=== PATIENT | male | born 1940 | race Caucasian/White ===

== ENCOUNTER 2020-06-28 11:59 | Emergency (ER) | payer MEDICARE, BC, OTHER ==
[2020-06-28] MEDS ORDERED: Iopamidol 755 Mg/ML 100 ML Bottle IVPUSH ONE (13:02)
[2020-06-28] MEDS ORDERED: Levofloxacin/Dextrose 5%-Water 500 MG in Premix Bag 1 BAG IV ONE (13:50)
[2020-06-28] MEDS ORDERED: Sodium Chloride 0.9% 1,000 ML IV SCH (14:00)
[2020-06-28] MEDS ORDERED: fentaNYL 100 MCG/2 ML SDV IVPUSH ONE (14:32)
--- NOTE | 2020-06-28 15:48 | EDM.PDOC ---
ED HPI GENERAL MEDICAL PROBLEM - General Chief Complaint: Abdominal Pain Stated Complaint: ABD Pain Time Seen by Provider: 06/28/20 12:05 Source of Information: Reports: Patient History Limitations: Reports: No Limitations - History of Present Illness INITIAL COMMENTS - FREE TEXT/NARRATIVE: Patient presents to ER today with complaints of lower quadrant abdominal pain. Has had pain for the last 3 days, getting worse. Has been in quarantine due to dying recently, positive for COVID. He states he has been tested x2 prior to this, both negative. Denies any fever. No sore throat, cough, shortness of breath. Denies nausea or vomiting. Had a BM 2 days ago, was "a small one". No urinary complaints. Admits has not been eating or drinking well the last 24 hours. Onset: Gradual Duration: Day(s): Location: Reports: Abdomen Quality: Reports: Sharp Severity: Moderate Improves with: Reports: None Associated Symptoms: Reports: Loss of Appetite. 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 RLQ Pain Score (Numeric/FACES): 5 - Related Data Allergies Allergy/AdvReac Type Severity Reaction Status Date / Time No Known Allergies Allergy Verified 06/28/20 12:00 Home Meds: Home Meds Metoprolol Tartrate 100 mg PO DAILY 06/28/20 [History] Simvastatin 20 mg PO DAILY 06/28/20 [History] Warfarin [Coumadin] 2.5 mg PO DAILY 06/28/20 [History] lisinopriL [Lisinopril] 20 mg PO DAILY 06/28/20 [History] Past Medical History Cardiovascular History: Reports: Afib, High Cholesterol, Hypertension - Past Surgical History GI Surgical History: Reports: Appendectomy Social & Family History - Family History Family Medical History: Noncontributory - Tobacco Use Smoking Status *Q: Never Smoker - Caffeine Use Caffeine Use: Reports: None - Recreational Drug Use Recreational Drug Use: No ED ROS GENERAL - Review of Systems Review Of Systems: See Below Constitutional: Reports: Malaise, Weakness, Fatigue. Denies: Fever, Chills HEENT: Reports: No Symptoms Respiratory: Denies: Shortness of Breath, Cough Cardiovascular: Denies: Chest Pain, Edema, Lightheadedness Endocrine: Reports: Fatigue GI/Abdominal: Reports: Abdominal Pain, Constipation. Denies: Nausea, Vomiting : Reports: No Symptoms Musculoskeletal: Reports: No Symptoms Skin: Reports: No Symptoms Neurological: Reports: No Symptoms ED EXAM, GI/ABD - Physical Exam Exam: See Below Exam Limited By: No Limitations General Appearance: Alert, WD/WN, No Apparent Distress Ears: Normal External Exam, Normal TMs Nose: Normal Inspection, Normal Mucosa, No Blood Throat/Mouth: Normal Inspection, Normal Oropharynx Head: Normocephalic Neck: Normal Inspection, Supple, Non-Tender Respiratory/Chest: No Respiratory Distress, Lungs Clear, Normal Breath Sounds Cardiovascular: Irregularly Irregular GI/Abdominal Exam: Normal Bowel Sounds, Soft, Tender (tender to lower quadrants bilaterally, more so on the right) Extremities: Normal Inspection, No Pedal Edema Neurological: Alert, Oriented Skin Exam: Warm, Dry Course - Vital Signs Last Recorded V/S: Last Vital Signs Temp 98.3 F 06/28/20 17:41 Pulse 72 06/28/20 17:41 Resp 18 06/28/20 17:41 BP 133/74 06/28/20 17:41 Pulse Ox 97 06/28/20 17:41 - Orders/Labs/Meds Labs: Laboratory Tests 06/28/20 06/28/20 06/28/20 Range/Units 12:04 12:15 12:15 WBC 19.4 H (5.0-10.0) 10^3/uL RBC 4.69 (4.50-6.00) 10^6/uL Hgb 13.9 L (14.0-18.0) g/dL Hct 42.5 (40.0-54.0) % MCV 90.6 (82.0-94.0) fL MCH 29.6 (27.0-32.0) pg MCHC 32.7 L (33.0-38.0) g/dL RDW Coeff of Tavia 14.7 (11.0-15.0) % Plt Count 144 L (150-400) 10^3/uL Add Manual Diff Yes Neutrophils % (Manual) 85 (35-85) % Band Neutrophils % 7 H (0-5) % Lymphocytes % (Manual) 3 L (21-55) % Monocytes % (Manual) 5 (2-12) % Sodium 143 (136-145) mEq/L Potassium 4.4 (3.5-5.0) mEq/L Chloride 104 (98-106) mEq/L Carbon Dioxide 30 (21-32) mmol/L BUN 26 H (7-18) mg/dL Creatinine 1.5 H (0.7-1.3) mg/dL Est Cr Clr Drug Dosing 40.56 mL/min Estimated GFR (MDRD) 45 L (>=60) mL/min Glucose 165 H D (75-99) mg/dL Calcium 9.1 (8.4-10.1) mg/dL Total Bilirubin 2.3 H (0.0-1.0) mg/dL AST 22 (15-37) U/L ALT 20 (12-78) U/L Alkaline Phosphatase 67 (46-116) U/L C-Reactive Protein 3.6 H (0.2-0.8) mg/dL Total Protein 6.7 (6.4-8.2) g/dL Albumin 3.4 (3.4-5.0) g/dL Amylase 98 (25-115) U/L Lipase 79 (73-393) U/L Urine Color (YELLOW) Urine Appearance (CLEAR) Urine pH (4.5-8.0) Ur Specific [place] (1.003-1.020) Urine Protein (NEGATIVE) mg/dL Urine Glucose (UA) (NEGATIVE) mg/dL Urine Ketones (NEGATIVE) mg/dL Urine Occult Blood (NEGATIVE) Urine Nitrite (NEGATIVE) Urine Bilirubin (NEGATIVE) Urine Urobilinogen (0.2-1.0) EU/dL Ur Leukocyte Esterase (NEGATIVE) Urine RBC (0-5) /HPF Urine WBC (0-5) /HPF Ur Epithelial Cells (NOT SEEN) /HPF SARS CoV-2 RNA Rapid ETHAN Negative (NEGATIVE) 06/28/20 Range/Units 14:00 WBC (5.0-10.0) 10^3/uL RBC (4.50-6.00) 10^6/uL Hgb (14.0-18.0) g/dL Hct (40.0-54.0) % MCV (82.0-94.0) fL MCH (27.0-32.0) pg MCHC (33.0-38.0) g/dL RDW Coeff of Tavia (11.0-15.0) % Plt Count (150-400) 10^3/uL Add Manual Diff Neutrophils % (Manual) (35-85) % Band Neutrophils % (0-5) % Lymphocytes % (Manual) (21-55) % Monocytes % (Manual) (2-12) % Sodium (136-145) mEq/L Potassium (3.5-5.0) mEq/L Chloride (98-106) mEq/L Carbon Dioxide (21-32) mmol/L BUN (7-18) mg/dL Creatinine (0.7-1.3) mg/dL Est Cr Clr Drug Dosing mL/min Estimated GFR (MDRD) (>=60) mL/min Glucose (75-99) mg/dL Calcium (8.4-10.1) mg/dL Total Bilirubin (0.0-1.0) mg/dL AST (15-37) U/L ALT (12-78) U/L Alkaline Phosphatase (46-116) U/L C-Reactive Protein (0.2-0.8) mg/dL Total Protein (6.4-8.2) g/dL Albumin (3.4-5.0) g/dL Amylase (25-115) U/L Lipase (73-393) U/L Urine Color Red (YELLOW) Urine Appearance Cloudy (CLEAR) Urine pH 5.5 (4.5-8.0) Ur Specific [place] 1.025 H (1.003-1.020) Urine Protein 100 H (NEGATIVE) mg/dL Urine Glucose (UA) Negative (NEGATIVE) mg/dL Urine Ketones Negative (NEGATIVE) mg/dL Urine Occult Blood Large H (NEGATIVE) Urine Nitrite Positive H (NEGATIVE) Urine Bilirubin Small H (NEGATIVE) Urine Urobilinogen 0.2 (0.2-1.0) EU/dL Ur Leukocyte Esterase Negative (NEGATIVE) Urine RBC >100 H (0-5) /HPF Urine WBC Not seen (0-5) /HPF Ur Epithelial Cells Moderate H (NOT SEEN) /HPF SARS CoV-2 RNA Rapid ETHAN (NEGATIVE) Meds: Medications Discontinued Medications Generic Name Dose Route Start Last Admin Trade Name Freq PRN Reason Stop Dose Admin Fentanyl 25 mcg 06/28/20 14:32 06/28/20 15:04 Sublimaze IVPUSH 06/28/20 14:33 25 mcg ONETIME ONE Administration Sodium Chloride 1,000 mls @ 250 mls/hr 06/28/20 14:00 06/28/20 17:42 Normal Saline IV 0 mls/hr ASDIRECTED ROSALINA Infusion Levofloxacin/Dextrose 500 mg/ 100 mls @ 100 mls/hr 06/28/20 13:50 06/28/20 16:53 Premix IV 06/28/20 14:49 Infused ONETIME ONE Infusion Iopamidol 100 ml 06/28/20 13:02 06/28/20 13:13 Isovue-370 (76%) IVPUSH 06/28/20 13:03 100 ml ONETIME ONE Administration - Re-Assessments/Exams Free Text/Narrative Re-Assessment/Exam: 06/28 Patient's labs show elevated WBC, CRP. Unable to void. Fluids started. Questioned about pain level, states "just need something to help sleep at night". CT scan ordered. CT scan shows hydronephrosis, stone to the right ureter. Also concerns with prostatitis. Levaquin order. 06-28 151- Patient given Fentanyl. Admits to relief of discomfort. Offered admission, patient declined. Will start on Levaquin, flomax and norco. Will strain urine. Return on Wednesday for INR Departure - Departure Time of Disposition: 15:44 Disposition: Home, Self-Care 01 Condition: Fair Clinical Impression: Ureteral colic, Prostatitis - Discharge Information *PRESCRIPTION DRUG MONITORING PROGRAM REVIEWED*: No *COPY OF PRESCRIPTION DRUG MONITORING REPORT IN PATIENT LOW: No Referrals: Tona Victoria PA-C [Primary Care Provider] - Forms: ED Department Discharge Additional Instructions: 1. Rest 2. Push fluids 3. Hydrocodone every6 hours as needed for pain 4. Levaquin 250 mg daily 5. Flomax 0.4 mg daily 6. Strain urine 7. INR on Wednesday due to antibiotic use 8. See primary care provider next week for follow up Sepsis Event Note (ED) - Evaluation Sepsis Screening Result: No Definite Risk
== END 2020-06-28 17:46 | disposition home or self-care (01) ==
LOC: CC.ED 11:59
DX: N13.2 Hydronephrosis with renal and ureteral calculous obstruction (principal); N41.9 Inflammatory disease of prostate, unspecified; I10 Essential (primary) hypertension; R53.1 Weakness; E78.00 Pure hypercholesterolemia, unspecified; I48.91 Unspecified atrial fibrillation; Z79.01 Long term (current) use of anticoagulants; Z79.899 Other long term (current) drug therapy; Z20.828 Contact with and (suspected) exposure to other viral communicable diseases
CPT/HCPCS: 36415; 74177; 80053; 81001; 82150; 83690; 85025; 86140; 87086; 96365; 96375; 99284; J1956; J3010; J7030; Q9967; U0002

== ENCOUNTER 2020-11-20 21:10 | Inpatient (IN) | payer MEDICARE, BC ==
[2020-11-20] MEDS ORDERED: Iopamidol 755 Mg/ML 100 ML Bottle IVPUSH ONE (21:35)
[2020-11-20] MEDS ORDERED: Acetaminophen 325 MG Tab PO ONE (23:04)
--- NOTE | 2020-11-20 23:11 | EDM.PDOC ---
ED HPI GENERAL MEDICAL PROBLEM - General Chief Complaint: General Stated Complaint: weakness Time Seen by Provider: 11/20/20 21:20 Source of Information: Reports: Patient, Family History Limitations: Reports: No Limitations - History of Present Illness INITIAL COMMENTS - FREE TEXT/NARRATIVE: Art is an 80 yo male who presents to the ED via private vehicle, accompanied by his sons, with weakness. States he was seen this morning at [facility] and had laboratory work done today. Was unable to leave a urine sample. Admits a few weeks ago he did receive his first Covid vaccine and admits ever since then he hasn't felt well. States he hasn't had any appetite and if he does eat he is nauseated. Admits to some mild intermittent abdominal discomfort as well. Denies any diarrhea. No upper respiratory symptoms. Has been unable to drink much for fluids. Both sons state they were to bring him up tomorrow morning for a CT scan. Has had some weight loss the last few weeks as well. - Related Data Allergies Allergy/AdvReac Type Severity Reaction Status Date / Time No Known Allergies Allergy Verified 11/20/20 21:15 Home Meds: Home Meds Metoprolol Tartrate 100 mg PO BID 06/28/20 [History] Simvastatin 20 mg PO DAILY 06/28/20 [History] Warfarin [Coumadin] 2.5 mg PO DAILY 06/28/20 [History] lisinopriL [Lisinopril] 20 mg PO DAILY 06/28/20 [History] Hydrocodone/Acetaminophen [Hydrocodone-Acetamin 5-325 mg] 1 each PO Q6H PRN 11/20/20 [History] Past Medical History Cardiovascular History: Reports: Afib, High Cholesterol, Hypertension - Past Surgical History Cardiovascular Surgical History: Reports: None GI Surgical History: Reports: Appendectomy Social & Family History - Family History Family Medical History: No Pertinent Family History - Tobacco Use Tobacco Use Status *Q: Never Tobacco User - Caffeine Use Caffeine Use: Reports: None ED ROS GENERAL - Review of Systems Review Of Systems: See Below Constitutional: Reports: Fever, Malaise, Weakness, Fatigue, Decreased Appetite, Weight Loss. Denies: Chills HEENT: Reports: No Symptoms Respiratory: Denies: Shortness of Breath, Wheezing, Cough Cardiovascular: Denies: Chest Pain, Edema, Lightheadedness, Palpitations, Syncope GI/Abdominal: Reports: Nausea. Denies: Bloody Stool, Constipation, Diarrhea, Hematochezia, Melena, Vomiting : Reports: No Symptoms. Denies: Dysuria, Flank Pain, Frequency, Hematuria, Urgency Musculoskeletal: Reports: Muscle Stiffness Skin: Reports: No Symptoms Neurological: Reports: No Symptoms. Denies: Confusion, Headache Psychiatric: Reports: Depression ED EXAM, GENERAL - Physical Exam Exam: See Below Exam Limited By: No Limitations General Appearance: Alert, Lethargic, Thin Ears: Normal External Exam, Normal Canal, Normal TMs Nose: Normal Inspection, Normal Mucosa, No Blood, Clear Rhinorrhea Throat/Mouth: Normal Inspection, Normal Voice, No Airway Compromise, Other (dry oral mucosa). No: Normal Lips (dry lips) Head: Atraumatic, Normocephalic Neck: Normal Inspection, Supple Respiratory/Chest: No Respiratory Distress, Decreased Breath Sounds (right lower lobe), Rhonchi (bases) Cardiovascular: No Murmur, Tachycardia GI/Abdominal: Normal Bowel Sounds, No Organomegaly, No Distention, Tender (mild epigastric tenderness) Back Exam: No: CVA Tenderness (L), CVA Tenderness (R) Extremities: Pedal Edema (trace pitting bilateral) Neurological: Alert, Oriented Skin Exam: Dry, Intact, No Rash, Increased Warmth, Mottled Course - Vital Signs Last Recorded V/S: Last Vital Signs Temp 100.9 F H 11/20/20 22:07 Pulse 92 11/20/20 22:07 Resp 15 11/20/20 22:07 BP 131/67 11/20/20 22:07 Pulse Ox 98 11/20/20 22:07 - Orders/Labs/Meds Orders: Active Orders 24 hr Category Date Time Status CULTURE BLOOD [BC] Stat Lab 11/20/20 21:15 Received CULTURE BLOOD [BC] Stat Lab 11/20/20 21:20 Received Labs: Laboratory Tests 11/20/20 11/20/20 11/20/20 Range/Units 21:16 21:16 21:16 WBC 5.7 (5.0-10.0) 10^3/uL RBC 5.42 (4.50-6.00) 10^6/uL Hgb 16.0 (14.0-18.0) g/dL Hct 47.4 (40.0-54.0) % MCV 87.5 (82.0-94.0) fL MCH 29.5 (27.0-32.0) pg MCHC 33.8 (33.0-38.0) g/dL RDW Coeff of Tavia 14.4 (11.0-15.0) % Plt Count 132 L (150-400) 10^3/uL Add Manual Diff Yes Neutrophils % (Manual) 71 (35-85) % Lymphocytes % (Manual) 10 L (21-55) % Monocytes % (Manual) 18 H (2-12) % Basophils % (Manual) 1 (0-3) % Absolute Neutrophils 4.05 (1.80-7.00) 10^3/uL Lymphocytes # (Manual) 0.57 L (1.00-4.80) 10^3/uL Monocytes # (Manual) 1.03 H (0.00-0.80) 10^3/uL Basophils # (Manual) 0.06 10^3/uL PT (9.7-12.3) SEC INR (0.92-1.18) Sodium 137 (136-145) mEq/L Potassium 4.3 (3.5-5.0) mEq/L Chloride 101 (98-106) mEq/L Carbon Dioxide 27 (21-32) mmol/L BUN 29 H (7-18) mg/dL Creatinine 1.4 H (0.7-1.3) mg/dL Est Cr Clr Drug Dosing 39.15 mL/min Estimated GFR (MDRD) 49 L (>=60) mL/min Glucose 122 H (75-99) mg/dL Lactic Acid 2.2 H (0.4-2.0) mmol/L Calcium 9.3 (8.4-10.1) mg/dL Total Bilirubin 1.2 H (0.0-1.0) mg/dL AST 114 H (15-37) U/L ALT 84 H (12-78) U/L Alkaline Phosphatase 81 (46-116) U/L C-Reactive Protein 5.5 H (0.2-0.8) mg/dL Total Protein 7.6 (6.4-8.2) g/dL Albumin 3.0 L (3.4-5.0) g/dL Amylase 103 (25-115) U/L Lipase 178 (73-393) U/L Urine Color (YELLOW) Urine Appearance (CLEAR) Urine pH (4.5-8.0) Ur Specific [place] (1.003-1.020) Urine Protein (NEGATIVE) mg/dL Urine Glucose (UA) (NEGATIVE) mg/dL Urine Ketones (NEGATIVE) mg/dL Urine Occult Blood (NEGATIVE) Urine Nitrite (NEGATIVE) Urine Bilirubin (NEGATIVE) Urine Urobilinogen (0.2-1.0) EU/dL Ur Leukocyte Esterase (NEGATIVE) U Hyaline Cast (Auto) (NOT SEEN) /LPF Urine RBC (0-5) /HPF Urine WBC (0-5) /HPF Urine Mucus (NOT SEEN) /HPF SARS-CoV-2 RNA (ETHAN) (NEGATIVE) 11/20/20 11/20/20 11/20/20 Range/Units 21:18 21:25 22:00 WBC (5.0-10.0) 10^3/uL RBC (4.50-6.00) 10^6/uL Hgb (14.0-18.0) g/dL Hct (40.0-54.0) % MCV (82.0-94.0) fL MCH (27.0-32.0) pg MCHC (33.0-38.0) g/dL RDW Coeff of Tavia (11.0-15.0) % Plt Count (150-400) 10^3/uL Add Manual Diff Neutrophils % (Manual) (35-85) % Lymphocytes % (Manual) (21-55) % Monocytes % (Manual) (2-12) % Basophils % (Manual) (0-3) % Absolute Neutrophils (1.80-7.00) 10^3/uL Lymphocytes # (Manual) (1.00-4.80) 10^3/uL Monocytes # (Manual) (0.00-0.80) 10^3/uL Basophils # (Manual) 10^3/uL PT 15.4 H (9.7-12.3) SEC INR 1.53 H (0.92-1.18) Sodium (136-145) mEq/L Potassium (3.5-5.0) mEq/L Chloride (98-106) mEq/L Carbon Dioxide (21-32) mmol/L BUN (7-18) mg/dL Creatinine (0.7-1.3) mg/dL Est Cr Clr Drug Dosing mL/min Estimated GFR (MDRD) (>=60) mL/min Glucose (75-99) mg/dL Lactic Acid (0.4-2.0) mmol/L Calcium (8.4-10.1) mg/dL Total Bilirubin (0.0-1.0) mg/dL AST (15-37) U/L ALT (12-78) U/L Alkaline Phosphatase (46-116) U/L C-Reactive Protein (0.2-0.8) mg/dL Total Protein (6.4-8.2) g/dL Albumin (3.4-5.0) g/dL Amylase (25-115) U/L Lipase (73-393) U/L Urine Color [place] (YELLOW) Urine Appearance Slightly cloudy (CLEAR) Urine pH 5.0 (4.5-8.0) Ur Specific [place] >= 1.030 H (1.003-1.020) Urine Protein >=300 H (NEGATIVE) mg/dL Urine Glucose (UA) Negative (NEGATIVE) mg/dL Urine Ketones Negative (NEGATIVE) mg/dL Urine Occult Blood Moderate H (NEGATIVE) Urine Nitrite Negative (NEGATIVE) Urine Bilirubin Negative (NEGATIVE) Urine Urobilinogen 0.2 (0.2-1.0) EU/dL Ur Leukocyte Esterase Negative (NEGATIVE) U Hyaline Cast (Auto) Few H (NOT SEEN) /LPF Urine RBC 5-10 H (0-5) /HPF Urine WBC Not seen (0-5) /HPF Urine Mucus Few H (NOT SEEN) /HPF SARS-CoV-2 RNA (ETHAN) Positive (NEGATIVE) Meds: Medications Discontinued Medications Generic Name Dose Route Start Last Admin Trade Name Freq PRN Reason Stop Dose Admin Iopamidol 100 ml 11/20/20 21:35 11/20/20 21:49 Isovue-370 (76%) IVPUSH 11/20/20 21:36 100 ml ONETIME ONE Administration Departure - Departure Time of Disposition: 22:45 Disposition: Admitted As Inpatient 66 Clinical Impression: COVID-19, Nephrolithiasis, Dehydration Right lower lobe pneumonia Qualifiers: Pneumonia type: due to unspecified organism Qualified Code(s): J18.9 - Pneumonia, unspecified organism - Discharge Information *PRESCRIPTION DRUG MONITORING PROGRAM REVIEWED*: Not Applicable *COPY OF PRESCRIPTION DRUG MONITORING REPORT IN PATIENT LOW: Not Applicable Sepsis Event Note (ED) - Evaluation Sepsis Screening Result: Possible Sepsis Risk - Focused Exam Vital Signs: Vital Signs Temp Pulse Resp BP Pulse Ox 11/20/20 22:07 100.9 F H 92 15 131/67 98 11/20/20 21:11 101.6 F H 110 H 16 151/78 H 93 L - Problem List & Annotations (1) COVID-19 SNOMED Code(s): 066758492 Code(s): U07.1 - COVID-19 Status: Acute Current Visit: Yes (2) Dehydration SNOMED Code(s): 88549534 Code(s): E86.0 - DEHYDRATION Status: Acute Current Visit: Yes (3) Nephrolithiasis SNOMED Code(s): 99515904 Code(s): N20.0 - CALCULUS OF KIDNEY Status: Acute Current Visit: Yes (4) Right lower lobe pneumonia SNOMED Code(s): 503101588 Code(s): J18.9 - PNEUMONIA, UNSPECIFIED ORGANISM Status: Acute Current Visit: Yes Qualifiers: Pneumonia type: due to unspecified organism Qualified Code(s): J18.9 - Pneumonia, unspecified organism - Problem List Review Problem List Initiated/Reviewed/Updated: Yes - My Orders Last 24 Hours: My Active Orders 11/20/20 21:15 CULTURE BLOOD [BC] Stat 11/20/20 21:20 CULTURE BLOOD [BC] Stat - Assessment/Plan Admission H&P: Please use this note as an admission H&P Last 24 Hours: My Active Orders 11/20/20 21:15 CULTURE BLOOD [BC] Stat 11/20/20 21:20 CULTURE BLOOD [BC] Stat Plan: Art appears to be significantly dehydrated. Will initiate IV fluids. Covid was positive tonight and will admit to [facility] room under acute care. CT of the chest/abdomen/pelvis did show right lower lobe pneumonia and also a 3mm kidney stone at the UV junction. Moderate amount of blood noted in urine, no sign of UTI. Lactic acid was 2.7 earlier today and now 2.2. WBC is stable and normal at 5700. CRP slightly elevated. Electrolytes stable. Discussed into detail Art condition with both sons and Art himself. Art declines any life saving measures if it would come to that. He requests to stay at the local facility at this time. Will place in Covla unit and start IV fluids under acute care. Patient in agreement.
[2020-11-20] MEDS ORDERED: Sodium Chloride 0.9% 1,000 ML IV SCH ×2 (23:15→23:59)
[2020-11-20] MEDS ORDERED: Ibuprofen 200 MG Tab PO PRN (23:59)
[2020-11-20] MEDS ORDERED: Ondansetron 4 MG/2 ML SDV IV PRN (23:59)
[2020-11-21] MEDS ORDERED: Acetaminophen/HYDROcodone 325-5 MG Tab PO PRN (00:04)
[2020-11-21] MEDS: cefTRIAXone 1 GM Vial IVPUSH SCH ×2 (00:35→23:39)
[2020-11-21] MEDS: Enoxaparin 40 MG/0.4 ML Syringe SUBCUT SCH (00:35)
[2020-11-21] MEDS: Azithromycin 500 MG in Sodium Chloride 0.9% 250 ML IV SCH ×2 (00:35→23:39)
[2020-11-21 07:41] LABS: CHLORIDE,CL 105 mEq/L (98-106); SODIUM,NA 139 mEq/L (136-145)
[2020-11-21] MEDS: Lisinopril 20 MG Tab PO SCH (07:56)
[2020-11-21] MEDS: Metoprolol Tartrate 50 MG Tab PO SCH ×2 (07:56→19:54)
[2020-11-21] MEDS: Simvastatin 20 MG Tab PO SCH (07:56)
[2020-11-21] MEDS ORDERED: Sodium Chloride 0.9% 1,000 ML IV SCH (10:30)
[2020-11-21] MEDS: Warfarin 2.5 MG Tab PO SCH (12:02)
[2020-11-21] MEDS: Acetaminophen 325 MG Tab PO PRN ×2 (13:45→23:49)
--- NOTE | 2020-11-21 18:12 | PCM.PN ---
- General Info Date of Service: 11/21/20 Subjective Update: Art is an 80 yo male who presented to the ED yesterday via private vehicle, accompanied by his sons, with weakness. He was seen yesterday morning at [facility] and had laboratory work done. Was unable to leave a urine sample. Admits a few weeks ago he did receive his first Covid vaccine and admits ever since then he hasn't felt well. Stated on admit he hasn't had an appetite and if he would eat he got nauseated. On admission he did complain of some mild intermittent abdominal discomfort as well. 11/21/2020 Patient was diagnosed with COVID, RLL pneumonia, nephrolithiasis yesterday. Today he states he is feeling great. Admits to feeling night and day difference from yesterday. He has been up to the bathroom without difficulty. Denies any abdominal discomfort. No shortness of breath or cough. Overall is feeling well. Functional Status: Reports: Pain Controlled, Ambulating, Urinating - Review of Systems General: Reports: Fatigue. Denies: Fever, Chills HEENT: Reports: No Symptoms Pulmonary: Reports: No Symptoms Cardiovascular: Reports: No Symptoms Gastrointestinal: Reports: No Symptoms Genitourinary: Reports: No Symptoms Musculoskeletal: Reports: No Symptoms Skin: Reports: No Symptoms Neurological: Reports: No Symptoms Psychiatric: Reports: No Symptoms - Patient Data Vitals - Most Recent: Last Vital Signs Temp 98.6 F 11/21/20 12:00 Pulse 63 11/21/20 12:00 Resp 18 11/21/20 12:00 BP 112/56 L 11/21/20 12:00 Pulse Ox 94 L 11/21/20 12:00 Weight - Most Recent: 138 lb 11.2 oz Lab Results Last 24 Hours: Laboratory Results - last 24 hr 11/20/20 11/20/20 11/20/20 Range/Units 21:16 21:16 21:16 WBC 5.7 (5.0-10.0) 10^3/uL RBC 5.42 (4.50-6.00) 10^6/uL Hgb 16.0 (14.0-18.0) g/dL Hct 47.4 (40.0-54.0) % MCV 87.5 (82.0-94.0) fL MCH 29.5 (27.0-32.0) pg MCHC 33.8 (33.0-38.0) g/dL RDW Coeff of Tavia 14.4 (11.0-15.0) % Plt Count 132 L (150-400) 10^3/uL Neut % (Auto) (35-85) % Lymph % (Auto) (10-55) % [place] % (Auto) (0-16) % Eos % (Auto) (0-5) % Baso % (Auto) (0-3) % Neut # (Auto) (1.80-7.00) 10^3/uL Lymph # (Auto) (1.00-4.80) 10^3/uL [place] # (Auto) (0.00-0.80) 10^3/uL Eos # (Auto) (0.00-0.45) 10^3/uL Baso # (Auto) 10^3/uL Add Manual Diff Yes Neutrophils % (Manual) 71 (35-85) % Lymphocytes % (Manual) 10 L (21-55) % Monocytes % (Manual) 18 H (2-12) % Basophils % (Manual) 1 (0-3) % Absolute Neutrophils 4.05 (1.80-7.00) 10^3/uL Lymphocytes # (Manual) 0.57 L (1.00-4.80) 10^3/uL Monocytes # (Manual) 1.03 H (0.00-0.80) 10^3/uL Basophils # (Manual) 0.06 10^3/uL PT (9.7-12.3) SEC INR (0.92-1.18) Sodium 137 (136-145) mEq/L Potassium 4.3 (3.5-5.0) mEq/L Chloride 101 (98-106) mEq/L Carbon Dioxide 27 (21-32) mmol/L BUN 29 H (7-18) mg/dL Creatinine 1.4 H (0.7-1.3) mg/dL Est Cr Clr Drug Dosing 39.15 mL/min Estimated GFR (MDRD) 49 L (>=60) mL/min Glucose 122 H (75-99) mg/dL Lactic Acid 2.2 H (0.4-2.0) mmol/L Calcium 9.3 (8.4-10.1) mg/dL Total Bilirubin 1.2 H (0.0-1.0) mg/dL AST 114 H (15-37) U/L ALT 84 H (12-78) U/L Alkaline Phosphatase 81 (46-116) U/L C-Reactive Protein 5.5 H (0.2-0.8) mg/dL Total Protein 7.6 (6.4-8.2) g/dL Albumin 3.0 L (3.4-5.0) g/dL Amylase 103 (25-115) U/L Lipase 178 (73-393) U/L Urine Color (YELLOW) Urine Appearance (CLEAR) Urine pH (4.5-8.0) Ur Specific [place] (1.003-1.020) Urine Protein (NEGATIVE) mg/dL Urine Glucose (UA) (NEGATIVE) mg/dL Urine Ketones (NEGATIVE) mg/dL Urine Occult Blood (NEGATIVE) Urine Nitrite (NEGATIVE) Urine Bilirubin (NEGATIVE) Urine Urobilinogen (0.2-1.0) EU/dL Ur Leukocyte Esterase (NEGATIVE) U Hyaline Cast (Auto) (NOT SEEN) /LPF Urine RBC (0-5) /HPF Urine WBC (0-5) /HPF Urine Mucus (NOT SEEN) /HPF SARS-CoV-2 RNA (ETHAN) (NEGATIVE) 11/20/20 11/20/20 11/20/20 Range/Units 21:18 21:25 22:00 WBC (5.0-10.0) 10^3/uL RBC (4.50-6.00) 10^6/uL Hgb (14.0-18.0) g/dL Hct (40.0-54.0) % MCV (82.0-94.0) fL MCH (27.0-32.0) pg MCHC (33.0-38.0) g/dL RDW Coeff of [place]avia (11.0-15.0) % Plt Count (150-400) 10^3/uL Neut % (Auto) (35-85) % Lymph % (Auto) (10-55) % [place] % (Auto) (0-16) % Eos % (Auto) (0-5) % Baso % (Auto) (0-3) % Neut # (Auto) (1.80-7.00) 10^3/uL Lymph # (Auto) (1.00-4.80) 10^3/uL [place] # (Auto) (0.00-0.80) 10^3/uL Eos # (Auto) (0.00-0.45) 10^3/uL Baso # (Auto) 10^3/uL Add Manual Diff Neutrophils % (Manual) (35-85) % Lymphocytes % (Manual) (21-55) % Monocytes % (Manual) (2-12) % Basophils % (Manual) (0-3) % Absolute Neutrophils (1.80-7.00) 10^3/uL Lymphocytes # (Manual) (1.00-4.80) 10^3/uL Monocytes # (Manual) (0.00-0.80) 10^3/uL Basophils # (Manual) 10^3/uL PT 15.4 H (9.7-12.3) SEC INR 1.53 H (0.92-1.18) Sodium (136-145) mEq/L Potassium (3.5-5.0) mEq/L Chloride (98-106) mEq/L Carbon Dioxide (21-32) mmol/L BUN (7-18) mg/dL Creatinine (0.7-1.3) mg/dL Est Cr Clr Drug Dosing mL/min Estimated GFR (MDRD) (>=60) mL/min Glucose (75-99) mg/dL Lactic Acid (0.4-2.0) mmol/L Calcium (8.4-10.1) mg/dL Total Bilirubin (0.0-1.0) mg/dL AST (15-37) U/L ALT (12-78) U/L Alkaline Phosphatase (46-116) U/L C-Reactive Protein (0.2-0.8) mg/dL Total Protein (6.4-8.2) g/dL Albumin (3.4-5.0) g/dL Amylase (25-115) U/L Lipase (73-393) U/L Urine Color [place] (YELLOW) Urine Appearance Slightly cloudy (CLEAR) Urine pH 5.0 (4.5-8.0) Ur Specific [place] >= 1.030 H (1.003-1.020) Urine Protein >=300 H (NEGATIVE) mg/dL Urine Glucose (UA) Negative (NEGATIVE) mg/dL Urine Ketones Negative (NEGATIVE) mg/dL Urine Occult Blood Moderate H (NEGATIVE) Urine Nitrite Negative (NEGATIVE) Urine Bilirubin Negative (NEGATIVE) Urine Urobilinogen 0.2 (0.2-1.0) EU/dL Ur Leukocyte Esterase Negative (NEGATIVE) U Hyaline Cast (Auto) Few H (NOT SEEN) /LPF Urine RBC 5-10 H (0-5) /HPF Urine WBC Not seen (0-5) /HPF Urine Mucus Few H (NOT SEEN) /HPF SARS-CoV-2 RNA (ETHAN) Positive (NEGATIVE) 11/21/20 11/21/20 11/21/20 Range/Units 07:00 07:00 07:00 WBC 4.8 L (5.0-10.0) 10^3/uL RBC 4.62 (4.50-6.00) 10^6/uL Hgb 13.7 L (14.0-18.0) g/dL Hct 41.0 (40.0-54.0) % MCV 88.7 (82.0-94.0) fL MCH 29.7 (27.0-32.0) pg MCHC 33.4 (33.0-38.0) g/dL RDW Coeff of Tavia 14.2 (11.0-15.0) % Plt Count 101 L (150-400) 10^3/uL Neut % (Auto) 68.7 (35-85) % Lymph % (Auto) 10.2 (10-55) % [place] % (Auto) 20.9 H (0-16) % Eos % (Auto) 0 (0-5) % Baso % (Auto) 0.2 (0-3) % Neut # (Auto) 3.29 (1.80-7.00) 10^3/uL Lymph # (Auto) 0.49 L (1.00-4.80) 10^3/uL [place] # (Auto) 1.00 H (0.00-0.80) 10^3/uL Eos # (Auto) 0.00 (0.00-0.45) 10^3/uL Baso # (Auto) 0.01 10^3/uL Add Manual Diff Neutrophils % (Manual) (35-85) % Lymphocytes % (Manual) (21-55) % Monocytes % (Manual) (2-12) % Basophils % (Manual) (0-3) % Absolute Neutrophils (1.80-7.00) 10^3/uL Lymphocytes # (Manual) (1.00-4.80) 10^3/uL Monocytes # (Manual) (0.00-0.80) 10^3/uL Basophils # (Manual) 10^3/uL PT (9.7-12.3) SEC INR (0.92-1.18) Sodium 139 (136-145) mEq/L Potassium 4.1 (3.5-5.0) mEq/L Chloride 105 (98-106) mEq/L Carbon Dioxide 27 (21-32) mmol/L BUN 27 H (7-18) mg/dL Creatinine 1.1 (0.7-1.3) mg/dL Est Cr Clr Drug Dosing 47.66 mL/min Estimated GFR (MDRD) > 60 (>=60) mL/min Glucose 101 H (75-99) mg/dL Lactic Acid 1.2 (0.4-2.0) mmol/L Calcium 8.4 (8.4-10.1) mg/dL Total Bilirubin 0.8 (0.0-1.0) mg/dL AST 80 H (15-37) U/L ALT 67 (12-78) U/L Alkaline Phosphatase 61 (46-116) U/L C-Reactive Protein 4.7 H (0.2-0.8) mg/dL Total Protein 6.1 L (6.4-8.2) g/dL Albumin 2.4 L (3.4-5.0) g/dL Amylase (25-115) U/L Lipase (73-393) U/L Urine Color (YELLOW) Urine Appearance (CLEAR) Urine pH (4.5-8.0) Ur Specific [place] (1.003-1.020) Urine Protein (NEGATIVE) mg/dL Urine Glucose (UA) (NEGATIVE) mg/dL Urine Ketones (NEGATIVE) mg/dL Urine Occult Blood (NEGATIVE) Urine Nitrite (NEGATIVE) Urine Bilirubin (NEGATIVE) Urine Urobilinogen (0.2-1.0) EU/dL Ur Leukocyte Esterase (NEGATIVE) U Hyaline Cast (Auto) (NOT SEEN) /LPF Urine RBC (0-5) /HPF Urine WBC (0-5) /HPF Urine Mucus (NOT SEEN) /HPF SARS-CoV-2 RNA (ETHAN) (NEGATIVE) Med Orders - Current: Current Medications Acetaminophen (Tylenol) 650 mg PO Q4H PRN PRN Reason: Pain (Mild 1-3)/fever Last Admin: 11/21/20 13:45 Dose: 650 mg Documented by: Hydrocodone Bitart/Acetaminophen ([place] 325-5 Mg) 1 tab PO Q6H PRN PRN Reason: Pain Ceftriaxone Sodium (Rocephin) 1 gm IVPUSH Q24H [facility] Last Admin: 11/21/20 00:35 Dose: 1 gm Documented by: Enoxaparin Sodium (Lovenox) 40 mg SUBCUT Q24H [facility] Last Admin: 11/21/20 00:35 Dose: 40 mg Documented by: Azithromycin 500 mg/ Sodium (Chloride) 250 mls @ 250 mls/hr IV Q24H [facility] Last Admin: 11/21/20 00:35 Dose: 250 mls/hr Documented by: Sodium Chloride (Normal Saline) 1,000 mls @ 75 mls/hr IV ASDIRECTED [facility] Ibuprofen (Motrin) 400 mg PO Q6H PRN PRN Reason: Pain (mild 1-3) Lisinopril (Prinivil) 20 mg PO DAILY [facility] Last Admin: 11/21/20 07:56 Dose: 20 mg Documented by: Metoprolol Tartrate (Lopressor) 100 mg PO BID [facility] Last Admin: 11/21/20 07:56 Dose: 100 mg Documented by: Ondansetron HCl (Zofran) 4 mg IV Q4H PRN PRN Reason: Nausea/Vomiting Simvastatin (Zocor) 20 mg PO DAILY [facility] Last Admin: 11/21/20 07:56 Dose: 20 mg Documented by: Warfarin Sodium (Coumadin) 2.5 mg PO DAILY@1200 [facility] Last Admin: 11/21/20 12:02 Dose: 2.5 mg Documented by: Discontinued Medications Acetaminophen (Tylenol) 650 mg PO NOW ONE Stop: 11/20/20 23:05 Last Admin: 11/20/20 23:12 Dose: 650 mg Documented by: Sodium Chloride (Normal Saline) 1,000 mls @ 125 mls/hr IV ASDIRECTED [facility] Last Admin: 11/20/20 23:13 Dose: 125 mls/hr Documented by: Sodium Chloride (Normal Saline) 1,000 mls @ 125 mls/hr IV ASDIRECTED [facility] Iopamidol (Isovue-370 (76%)) 100 ml IVPUSH ONETIME ONE Stop: 11/20/20 21:36 Last Admin: 11/20/20 21:49 Dose: 100 ml Documented by: - Exam General: Alert, Oriented, Cooperative, No Acute Distress Lungs: Normal Respiratory Effort, Decreased Breath Sounds (right lower lobe) Cardiovascular: No Murmurs, Irregular Rhythm GI/Abdominal Exam: Normal Bowel Sounds, Soft, No Distention Extremities: Normal Inspection, Pedal Edema (trace) Skin: Warm, Dry, Intact Psy/Mental Status: Alert, Normal Affect, Normal Mood Sepsis Event Note - Evaluation Sepsis Screening Result: No Definite Risk - Focused Exam Vital Signs: Vital Signs Temp Pulse Pulse Resp BP BP Pulse Ox 11/21/20 12:00 98.6 F 63 18 112/56 L 94 L 11/21/20 08:00 98.1 F 68 18 126/63 97 11/21/20 07:56 63 126/63 - Problem List & Annotations (1) COVID-19 SNOMED Code(s): 165696829 Code(s): U07.1 - COVID-19 Status: Acute Current Visit: Yes (2) Dehydration SNOMED Code(s): 19529633 Code(s): E86.0 - DEHYDRATION Status: Acute Current Visit: Yes (3) Nephrolithiasis SNOMED Code(s): 72645089 Code(s): N20.0 - CALCULUS OF KIDNEY Status: Acute Current Visit: Yes (4) Right lower lobe pneumonia SNOMED Code(s): 242662077 Code(s): J18.9 - PNEUMONIA, UNSPECIFIED ORGANISM Status: Acute Current Visit: Yes Qualifiers: Pneumonia type: due to unspecified organism Qualified Code(s): J18.9 - Pneumonia, unspecified organism - Problem List Review Problem List Initiated/Reviewed/Updated: Yes - My Orders Last 24 Hours: My Active Orders 11/20/20 21:15 CULTURE BLOOD [BC] Stat 11/20/20 21:20 CULTURE BLOOD [BC] Stat 11/20/20 22:57 Resuscitation Status Routine 11/20/20 23:59 Acetaminophen [TylenoL] 650 mg PO Q4H PRN Azithromycin [Zithromax] 500 mg Sodium Chloride 0.9% [Normal Saline (AdvBag)] 250 ml IV Q24H Ibuprofen [Motrin] 400 mg PO Q6H PRN Ondansetron [Zofran] 4 mg IV Q4H PRN cefTRIAXone [Rocephin] 1 gm IVPUSH Q24H 11/20/20 23:59 Patient Status [ADT] Routine Oxygen Therapy [RC] .PRN Pulse Oximetry [RC] .PRN Up With Assistance [RC] .PRN Vital Signs [RC] 0000,0400,0800,1200,1600,2000 11/21/20 00:00 Isolation [COMM] Routine 11/21/20 00:04 Acetaminophen/HYDROcodone [[place] 325-5 MG] 1 tab PO Q6H PRN 11/21/20 01:00 Enoxaparin [Lovenox] 40 mg SUBCUT Q24H 11/21/20 08:00 Metoprolol Tartrate [Lopressor] 100 mg PO BID Simvastatin [Zocor] 20 mg PO DAILY lisinopriL [Prinivil] 20 mg PO DAILY 11/21/20 10:30 Sodium Chloride 0.9% [Normal Saline] 1,000 ml IV ASDIRECTED 11/21/20 12:00 Warfarin [Coumadin] 2.5 mg PO DAILY@1200 11/22/20 05:11 C-REACTIVE PROTEIN [CHEM] AM CBC WITH AUTO DIFF [HEME] AM COMPREHENSIVE METABOLIC PN,CMP [CHEM] AM LACTIC ACID [CHEM] AM 11/23/20 05:11 C-REACTIVE PROTEIN [CHEM] AM CBC WITH AUTO DIFF [HEME] AM COMPREHENSIVE METABOLIC PN,CMP [CHEM] AM LACTIC ACID [CHEM] AM - Plan Plan:: Patient is doing well today and significantly improved from yesterday. Will slow down IV fluids and continue with IV antibiotics at this time. Lactic acid normal this morning. No left shift. Will closely monitor. If patient is doing well and labs stable in am, will plan for discharge.
[2020-11-22] MEDS: Enoxaparin 40 MG/0.4 ML Syringe SUBCUT SCH (01:30)
[2020-11-22 07:38] LABS: CHLORIDE,CL 105 mEq/L (98-106); SODIUM,NA 141 mEq/L (136-145)
[2020-11-22] MEDS: Simvastatin 20 MG Tab PO SCH (08:05)
[2020-11-22] MEDS: Metoprolol Tartrate 50 MG Tab PO SCH (08:05)
[2020-11-22] MEDS: Lisinopril 20 MG Tab PO SCH (08:05)
--- NOTE | 2020-11-22 09:20 | PCM.DCSUM1 ---
Discharge Summary - Hospital Course HPI Initial Comments: See subjective update for HPI. Diagnosis: Stroke: No - Discharge Data Discharge Date: 11/22/20 Discharge Disposition: Home, Self-Care 01 Condition: Good - Referral to Home Health Primary Care Physician: Tona Victoria PA-C - Discharge Diagnosis/Problem(s) (1) COVID-19 SNOMED Code(s): 782909747 ICD Code: U07.1 - COVID-19 Status: Acute Current Visit: Yes (2) Dehydration SNOMED Code(s): 95438393 ICD Code: E86.0 - DEHYDRATION Status: Resolved Current Visit: Yes (3) Nephrolithiasis SNOMED Code(s): 47954658 ICD Code: N20.0 - CALCULUS OF KIDNEY Status: Acute Current Visit: Yes (4) Right lower lobe pneumonia SNOMED Code(s): 149448924 ICD Code: J18.9 - PNEUMONIA, UNSPECIFIED ORGANISM Status: Acute Current Visit: Yes Qualifiers: Pneumonia type: due to unspecified organism Qualified Code(s): J18.9 - Pneumonia, unspecified organism - Patient Instructions Diet: Usual Diet as Tolerated Activity: As Tolerated, Cough & Deep Breathe Notify Provider of: Fever - Discharge Plan *PRESCRIPTION DRUG MONITORING PROGRAM REVIEWED*: Not Applicable *COPY OF PRESCRIPTION DRUG MONITORING REPORT IN PATIENT LOW: Not Applicable Prescriptions/Med Rec: Cefuroxime Axetil [Ceftin] 500 mg PO BID #14 tablet Home Medications: Home Meds Metoprolol Tartrate 100 mg PO BID 06/28/20 [History] Simvastatin 20 mg PO DAILY 06/28/20 [History] Warfarin [Coumadin] 2.5 mg PO DAILY 06/28/20 [History] lisinopriL [Lisinopril] 20 mg PO DAILY 06/28/20 [History] Hydrocodone/Acetaminophen [Hydrocodone-Acetamin 5-325 mg] 1 each PO Q6H PRN 11/20/20 [History] Acetaminophen [Tylenol] 650 mg PO Q4H PRN tablet 11/22/20 [Rx] Cefuroxime Axetil [Ceftin] 500 mg PO BID #14 tablet 11/22/20 [Rx] Forms: ED Department Discharge Referrals: Tona Victoria PA-C [Primary Care Provider] - (1 week, off of quarantine and will need cbc, bmp, crp and INR) - Discharge Summary/Plan Comment DC Time >30 min.: Yes Discharge Summary/Plan Comment: Art is doing well today. Patient wishes to be discharged today and overall labs are stable and improving. Will discharge on oral Ceftin with concerns of right lower lobe pneumonia. Will have patient follow up with Tona Victoria, primary provider in 1 week, labs prior with recheck INR. Will continue current Coumadin dose. Advise patient if any fevers, chills, concerns of dehydration, shortness of breath, etc... returning for reevaluation. Patient in agreement and verbalizes understanding. - General Info Subjective Update: Art is an 80 yo male who presented to the ED yesterday via private vehicle, accompanied by his sons, with weakness. He was seen yesterday morning at [facility] and had laboratory work done. Was unable to leave a urine sample. Admits a few weeks ago he did receive his first Covid vaccine and admits ever since then he hasn't felt well. Stated on admit he hasn't had an appetite and if he would eat he got nauseated. On admission he did complain of some mild intermittent abdominal discomfort as well. 11/21/2020 Patient was diagnosed with COVID, RLL pneumonia, nephrolithiasis yesterday. Today he states he is feeling great. Admits to feeling night and day difference from yesterday. He has been up to the bathroom without difficulty. Denies any abdominal discomfort. No shortness of breath or cough. Overall is feeling well. 11/22/2020 Patient is doing well this morning. Denies any complaints. States this is the best he has felt in the last two weeks. Asks if he can go home today. States he has no difficulty ambulating to the bathroom. Denies any symptoms at all at this time. - Review of Systems General: Reports: No Symptoms HEENT: Reports: No Symptoms Pulmonary: Reports: No Symptoms Cardiovascular: Reports: No Symptoms Gastrointestinal: Reports: No Symptoms Genitourinary: Reports: No Symptoms Musculoskeletal: Reports: No Symptoms Skin: Reports: No Symptoms Neurological: Reports: No Symptoms - Patient Data Vitals - Most Recent: Last Vital Signs Temp 98.7 F 11/22/20 08:00 Pulse 73 11/22/20 08:05 Resp 16 11/22/20 08:00 BP 114/51 L 11/22/20 08:05 Pulse Ox 98 11/22/20 08:00 Weight - Most Recent: 138 lb 11.2 oz Lab Results - Last 24 hrs: Laboratory Results - last 24 hr 11/22/20 11/22/20 11/22/20 Range/Units 07:05 07:05 07:05 WBC 5.6 (5.0-10.0) 10^3/uL RBC 4.61 (4.50-6.00) 10^6/uL Hgb 13.4 L (14.0-18.0) g/dL Hct 40.8 (40.0-54.0) % MCV 88.5 (82.0-94.0) fL MCH 29.1 (27.0-32.0) pg MCHC 32.8 L (33.0-38.0) g/dL RDW Coeff of Tavia 14.2 (11.0-15.0) % Plt Count 100 L (150-400) 10^3/uL Add Manual Diff Yes Neutrophils % (Manual) 78 (35-85) % Band Neutrophils % 9 H (0-5) % Lymphocytes % (Manual) 6 L (21-55) % Monocytes % (Manual) 7 (2-12) % PT (9.7-12.3) SEC INR (0.92-1.18) Sodium 141 (136-145) mEq/L Potassium 4.2 (3.5-5.0) mEq/L Chloride 105 (98-106) mEq/L Carbon Dioxide 27 (21-32) mmol/L BUN 21 H (7-18) mg/dL Creatinine 1.1 (0.7-1.3) mg/dL Est Cr Clr Drug Dosing 47.66 mL/min Estimated GFR (MDRD) > 60 (>=60) mL/min Glucose 100 H (75-99) mg/dL Lactic Acid 1.3 (0.4-2.0) mmol/L Calcium 7.9 L (8.4-10.1) mg/dL Total Bilirubin 0.7 (0.0-1.0) mg/dL AST 58 H (15-37) U/L ALT 53 (12-78) U/L Alkaline Phosphatase 59 (46-116) U/L C-Reactive Protein 5.7 H (0.2-0.8) mg/dL Total Protein 5.7 L (6.4-8.2) g/dL Albumin 2.1 L (3.4-5.0) g/dL 11/22/20 Range/Units 07:05 WBC (5.0-10.0) 10^3/uL RBC (4.50-6.00) 10^6/uL Hgb (14.0-18.0) g/dL Hct (40.0-54.0) % MCV (82.0-94.0) fL MCH (27.0-32.0) pg MCHC (33.0-38.0) g/dL RDW Coeff of [place]avia (11.0-15.0) % Plt Count (150-400) 10^3/uL Add Manual Diff Neutrophils % (Manual) (35-85) % Band Neutrophils % (0-5) % Lymphocytes % (Manual) (21-55) % Monocytes % (Manual) (2-12) % PT 18.9 H (9.7-12.3) SEC INR 1.88 H (0.92-1.18) Sodium (136-145) mEq/L Potassium (3.5-5.0) mEq/L Chloride (98-106) mEq/L Carbon Dioxide (21-32) mmol/L BUN (7-18) mg/dL Creatinine (0.7-1.3) mg/dL Est Cr Clr Drug Dosing mL/min Estimated GFR (MDRD) (>=60) mL/min Glucose (75-99) mg/dL Lactic Acid (0.4-2.0) mmol/L Calcium (8.4-10.1) mg/dL Total Bilirubin (0.0-1.0) mg/dL AST (15-37) U/L ALT (12-78) U/L Alkaline Phosphatase (46-116) U/L C-Reactive Protein (0.2-0.8) mg/dL Total Protein (6.4-8.2) g/dL Albumin (3.4-5.0) g/dL ROSA Results - Last 24 hrs: Microbiology 11/20/20 21:20 Aerobic Blood Culture - Preliminary Blood - Arm, Left NO GROWTH AFTER 1 DAY Anaerobic Blood Culture - Preliminary NO GROWTH AFTER 1 DAY 11/20/20 21:15 Aerobic Blood Culture - Preliminary Blood NO GROWTH AFTER 1 DAY Anaerobic Blood Culture - Preliminary NO GROWTH AFTER 1 DAY Med Orders - Current: Current Medications Acetaminophen (Tylenol) 650 mg PO Q4H PRN PRN Reason: Pain (Mild 1-3)/fever Last Admin: 11/21/20 23:49 Dose: 650 mg Documented by: Hydrocodone Bitart/Acetaminophen ([place] 325-5 Mg) 1 tab PO Q6H PRN PRN Reason: Pain Ceftriaxone Sodium (Rocephin) 1 gm IVPUSH Q24H [facility] Last Admin: 11/21/20 23:39 Dose: 1 gm Documented by: Enoxaparin Sodium (Lovenox) 40 mg SUBCUT Q24H [facility] Last Admin: 11/22/20 01:30 Dose: 40 mg Documented by: Azithromycin 500 mg/ Sodium (Chloride) 250 mls @ 250 mls/hr IV Q24H [facility] Last Admin: 11/21/20 23:39 Dose: 250 mls/hr Documented by: Sodium Chloride (Normal Saline) 1,000 mls @ 75 mls/hr IV ASDIRECTED [facility] Last Admin: 11/21/20 23:38 Dose: 75 mls/hr Documented by: Ibuprofen (Motrin) 400 mg PO Q6H PRN PRN Reason: Pain (mild 1-3) Lisinopril (Prinivil) 20 mg PO DAILY [facility] Last Admin: 11/22/20 08:05 Dose: 20 mg Documented by: Metoprolol Tartrate (Lopressor) 100 mg PO BID [facility] Last Admin: 11/22/20 08:05 Dose: 100 mg Documented by: Ondansetron HCl (Zofran) 4 mg IV Q4H PRN PRN Reason: Nausea/Vomiting Simvastatin (Zocor) 20 mg PO DAILY [facility] Last Admin: 11/22/20 08:05 Dose: 20 mg Documented by: Warfarin Sodium (Coumadin) 2.5 mg PO DAILY@1200 [facility] Last Admin: 11/21/20 12:02 Dose: 2.5 mg Documented by: Discontinued Medications Acetaminophen (Tylenol) 650 mg PO NOW ONE Stop: 11/20/20 23:05 Last Admin: 11/20/20 23:12 Dose: 650 mg Documented by: Sodium Chloride (Normal Saline) 1,000 mls @ 125 mls/hr IV ASDIRECTED [facility] Last Admin: 11/20/20 23:13 Dose: 125 mls/hr Documented by: Sodium Chloride (Normal Saline) 1,000 mls @ 125 mls/hr IV ASDIRECTED [facility] Iopamidol (Isovue-370 (76%)) 100 ml IVPUSH ONETIME ONE Stop: 11/20/20 21:36 Last Admin: 11/20/20 21:49 Dose: 100 ml Documented by: - Exam General: Reports: Alert, Oriented, Cooperative, No Acute Distress Neck: Reports: Supple Lungs: Reports: Clear to Auscultation, Normal Respiratory Effort. Denies: Crackles, Rhonchi Cardiovascular: Reports: Regular Rate, Irregular Rhythm GI/Abdominal Exam: Normal Bowel Sounds, Soft, Non-Tender, No Organomegaly, No Distention Extremities: Normal Inspection, No Pedal Edema Skin: Reports: Warm, Dry, Intact Neurological: Reports: No New Focal Deficit Psy/Mental Status: Reports: Alert, Normal Affect, Normal Mood
[2020-11-22] MEDS ORDERED: Azithromycin 500 MG in Sodium Chloride 0.9% 250 ML IV ONE (11:00)
[2020-11-22] MEDS: Warfarin 2.5 MG Tab PO SCH (11:49)
== END 2020-11-22 13:10 | disposition home or self-care (01) | DRG 177 ==
LOC: CC.ED 21:10 → UNDOADMIN 22:53 → CC.MS 22:53
PROVIDERS: ADMIT Physician Assistant Medical; ATTEND Family Medicine
PROC: 8E0ZXY6 Isolation (ICD-10-PCS; principal; 2020-11-20)
DX: U07.1 COVID-19 (principal); J18.9 Pneumonia, unspecified organism; E86.0 Dehydration; N20.0 Calculus of kidney; E78.5 Hyperlipidemia, unspecified; Z90.49 Acquired absence of other specified parts of digestive tract; I10 Essential (primary) hypertension; E78.00 Pure hypercholesterolemia, unspecified; I48.91 Unspecified atrial fibrillation; Z79.01 Long term (current) use of anticoagulants; Z79.899 Other long term (current) drug therapy; R63.4 Abnormal weight loss; R50.9 Fever, unspecified
CPT/HCPCS: 36415; 71260; 74177; 80053; 81001; 82150; 83605; 83690; 85025; 85610; 86140; 87040; 99285-25; A9270-GY; J0456; J0696; J1650; J7030; J7050; Q9967; U0002

== ENCOUNTER 2021-12-15 13:00 | Inpatient (IN) | payer MEDICARE, BC ==
[2021-12-15] MEDS ORDERED: Pantoprazole 40 MG Vial IVPUSH ONE (13:18)
[2021-12-15 13:30] LABS: CHLORIDE,CL 112 mEq/L (98-106); PTT,PARTIAL THROMBOPLSTIN TIME 31.4 SEC (23.2-32.3); SODIUM,NA 146 mEq/L (136-145)
[2021-12-15] MEDS ORDERED: Acetaminophen 325 MG Tab PO PRN (14:03)
[2021-12-15] MEDS: Sodium Chloride 0.9% 1,000 ML IV SCH (15:25)
[2021-12-15] MEDS ORDERED: Mirtazapine 15 MG Tab PO SCH (20:00)
[2021-12-15] MEDS: Metoprolol Tartrate 50 MG Tab PO SCH (20:05)
[2021-12-16] MEDS: Sodium Chloride 0.9% 1,000 ML IV SCH ×2 (04:42→20:07)
[2021-12-16] MEDS ORDERED: Lactated Ringers 1,000 ML IV SCH (07:00)
[2021-12-16] MEDS ORDERED: Benzocaine 20% Oral Spray 59.2 ML Canister MUCMEM ONE (07:33)
[2021-12-16] MEDS ORDERED: Meperidine PF 25 MG/ML SDV IV ONE (07:35)
[2021-12-16] MEDS ORDERED: Midazolam 1 MG/ML 2 ML SDV IV ONE (07:36)
[2021-12-16 07:38] LABS: CHLORIDE,CL 115 mEq/L (98-106); SODIUM,NA 150 mEq/L (136-145)
[2021-12-16] MEDS ORDERED: Allopurinol 300 MG Tab PO SCH (08:00)
[2021-12-16] MEDS: Metoprolol Tartrate 50 MG Tab PO SCH (09:54)
[2021-12-16] MEDS: Lisinopril 20 MG Tab PO SCH (09:55)
[2021-12-16] MEDS: Pantoprazole 40 MG Vial IVPUSH SCH (13:02)
[2021-12-16] MEDS: Amoxicillin 500 MG Cap PO SCH (17:16)
[2021-12-16] MEDS: Simvastatin 20 MG Tab PO SCH (20:01)
[2021-12-16] MEDS: metroNIDAZOLE 500 MG Tab PO SCH (20:01)
[2021-12-17] MEDS: Metoprolol Tartrate 50 MG Tab PO SCH ×3 (06:11→19:34)
[2021-12-17] MEDS: Amoxicillin 500 MG Cap PO SCH ×2 (07:53→16:29)
[2021-12-17] MEDS: metroNIDAZOLE 500 MG Tab PO SCH ×2 (07:53→19:34)
[2021-12-17] MEDS: Lisinopril 20 MG Tab PO SCH (09:32)
[2021-12-17] MEDS: Sodium Chloride 0.9% 1,000 ML IV SCH ×2 (09:33→22:22)
[2021-12-17] MEDS: Ferrous Sulfate 324 MG Tab.EC PO SCH ×2 (09:35→16:29)
[2021-12-17] MEDS: Pantoprazole 40 MG Vial IVPUSH SCH (13:08)
[2021-12-17] MEDS: Simvastatin 20 MG Tab PO SCH (19:36)
[2021-12-18] MEDS: Ferrous Sulfate 324 MG Tab.EC PO SCH ×2 (07:59→17:19)
[2021-12-18] MEDS: metroNIDAZOLE 500 MG Tab PO SCH ×2 (07:59→19:38)
[2021-12-18] MEDS: Amoxicillin 500 MG Cap PO SCH ×2 (07:59→17:19)
[2021-12-18] MEDS: Metoprolol Tartrate 50 MG Tab PO SCH ×2 (08:01→19:38)
[2021-12-18] MEDS: Lisinopril 20 MG Tab PO SCH (08:01)
[2021-12-18] MEDS: Pantoprazole 40 MG Vial IVPUSH SCH (11:31)
[2021-12-18] MEDS: Sodium Chloride 0.9% 1,000 ML IV SCH (12:39)
[2021-12-18] MEDS: Simvastatin 20 MG Tab PO SCH (19:40)
[2021-12-19] MEDS: Sodium Chloride 0.9% 1,000 ML IV SCH (01:07)
[2021-12-19] MEDS: Metoprolol Tartrate 50 MG Tab PO SCH (07:33)
[2021-12-19] MEDS: Lisinopril 20 MG Tab PO SCH (07:33)
[2021-12-19] MEDS: Ferrous Sulfate 324 MG Tab.EC PO SCH ×2 (07:33→17:15)
[2021-12-19] MEDS: Amoxicillin 500 MG Cap PO SCH ×2 (07:33→17:15)
[2021-12-19] MEDS: metroNIDAZOLE 500 MG Tab PO SCH (07:33)
[2021-12-19] MEDS: Pantoprazole 40 MG Vial IVPUSH SCH (12:20)
== END 2021-12-19 18:41 | disposition home or self-care (01) | DRG 813 ==
LOC: CC.ED 13:00 → CC.MS 13:45 → UNDOADMIN 13:45 → CC.MS 13:59
PROVIDERS: ADMIT Nurse Practitioner Family; ATTEND Family Medicine
PROC: 0DB48ZX Excision of Esophagogastric Junction, Via Natural or Artificial Opening Endoscopic, Diagnostic (ICD-10-PCS; principal; 2021-12-16)
PROC: 0DB68ZX Excision of Stomach, Via Natural or Artificial Opening Endoscopic, Diagnostic (ICD-10-PCS; 2021-12-16)
DX: D68.32 Hemorrhagic disorder due to extrinsic circulating anticoagulants (principal); K25.4 Chronic or unspecified gastric ulcer with hemorrhage; K92.2 Gastrointestinal hemorrhage, unspecified; K92.89 Other specified diseases of the digestive system; I48.91 Unspecified atrial fibrillation; E78.00 Pure hypercholesterolemia, unspecified; I10 Essential (primary) hypertension; Z90.49 Acquired absence of other specified parts of digestive tract; Z79.899 Other long term (current) drug therapy; Z79.01 Long term (current) use of anticoagulants
CPT/HCPCS: 36415; 36430; 80053; 85025; 85610; 85730; 86850; 86900; 86901; 86920; 86922; 87081; 88305; 88312; 88342; 93005; 93010; 96374; 99223; 99232; 99233; 99238; 99285-25; A9270-GY; C9113; J2175; J2250; J7030; J7120; P9016

== ENCOUNTER → 2022-02-20 | Day surgery (SDC) | payer MEDICARE, BC ==
[~2022-02-20] MED LIST: Lactated Ringers 1,000 ML IV SCH; Phenylephrine 1% 10 MG/ML SDV ONE; Propofol 200 MG/20 ML SDV ONE; fentaNYL 100 MCG/2 ML SDV ONE
== END ==
LOC: CC.SDS 09:22
PROVIDERS: ATTEND Family Medicine
DX: K29.50 Unspecified chronic gastritis without bleeding (principal); K20.90 Esophagitis, unspecified without bleeding; K25.9 Gastric ulcer, unspecified as acute or chronic, without hemorrhage or perforation; I48.91 Unspecified atrial fibrillation; K22.89 Other specified disease of esophagus; K31.89 Other diseases of stomach and duodenum; I10 Essential (primary) hypertension; E78.5 Hyperlipidemia, unspecified; F17.210 Nicotine dependence, cigarettes, uncomplicated; M10.9 Gout, unspecified; Z90.49 Acquired absence of other specified parts of digestive tract; Z98.890 Other specified postprocedural states; Z79.01 Long term (current) use of anticoagulants; Z79.899 Other long term (current) drug therapy; Z87.19 Personal history of other diseases of the digestive system
CPT/HCPCS: 00731; J2370; J2704; J3010; J7120